=== PATIENT | male | born 1965 | race Caucasian/White ===

== ENCOUNTER → 2016-06-26 | Outpatient (CLI) | payer BC, OTHER | LOC: RAD 12:11 | DX: M25.511 Pain in right shoulder (principal); M54.5 Low back pain ==

== ENCOUNTER 2016-08-12 16:00 | Outpatient (RCR) | payer OTHER, BC | END 2016-09-16 15:47 | disposition home or self-care (01) | LOC: PT 16:00 | DX: M25.511 Pain in right shoulder (principal); M54.5 Low back pain ==

== ENCOUNTER → 2016-10-07 | Outpatient (CLI) | payer OTHER, BC | LOC: RAD 06:37 | DX: M54.5 Low back pain (principal); M48.06 Spinal stenosis, lumbar region ==